=== PATIENT | female | born 1985 | race Caucasian/White ===

== ENCOUNTER 2019-05-27 02:17 | Emergency (ER) | payer SELFPAY ==
[~2019-05-27] VITALS: Ht 162.6 cm; Wt 59.9 kg
[2019-05-27] MEDS ORDERED: methylPREDNISolone SOD SUCC 125 MG/2 ML IVPush STA (02:31)
[2019-05-27] MEDS ORDERED: ALBUTEROL/IPRATROPIUM 2.5MG/0.5MG, 3 ML ONE (02:40)
[2019-05-27] MEDS ORDERED: SODIUM CHLORIDE FLUSH 10ML SYR IVF ONE (03:00)
[2019-05-27] MEDS ORDERED: ALBUTEROL/IPRATROPIUM 2.5MG/0.5MG, 3 ML NPPB SCH (03:00)
[2019-05-27] MEDS ORDERED: methylPREDNISolone SOD SUCC 125 MG/2 ML ONE (03:02)
[2019-05-27 03:13] LABS: BASOPHILS # (AUTO) 0.04 x10^3/uL (0-0.1); BASOPHILS % (AUTO) 0 % (0-1); EOSINOPHILS # (AUTO) 0.15 x10^3/uL (0-0.4); EOSINOPHILS % (AUTO) 1 % (1-7); LYMPHOCYTES # (AUTO) 3.17 x10^3/uL (1-3.4); LYMPHOCYTES % (AUTO) 31 % (22-44); MD NO; MEAN CORPUSCULAR HEMOGLOBIN 31.7 pg (27.0-34.8); MEAN CORPUSCULAR HGB CONC 33.8 g/dL (32.4-35.8); MEAN CORPUSCULAR VOLUME 93.8 fL (80-100); MEAN PLATELET VOLUME 8.4 fL (7.4-10.4); MONOCYTES # (AUTO) 0.92 x10^3/uL (0.2-0.8); MONOCYTES % (AUTO) 9 % (2-9); NEUTROPHILS # (AUTO) 6.14 x10^3/uL (1.8-6.8); NEUTROPHILS % (AUTO) 59 % (42-75); PLATELET COUNT 378 x10^3/uL (130-400); RED BLOOD COUNT 4.26 x10^6/uL (3.82-5.3); RED CELL DISTRIBUTION WIDTH 13.2 % (9.6-15.2)
--- NOTE | 2019-05-27 03:26 | NUR ---
Patient into room. Patient is alert oriented and answers questions clearly and concisely. Pateints voice sounds hoarse, and has an occasional cough. Patient tolerating room are (see vital signs flowsheet) RN to bedside to initiate peripheral venous access. Blood work drawn and sent via construction assistant. Respiratory therapist to bedside and patient reports having a syncopal episode after last breathing treatment so nebulized medication held. Patient continues to tolerate room air. Administered steroidal antiinflammatory per provider order. Patient asking to go to the bathroom, patient agreeable to providing clean catch urine sample. No order placed yet, may collect if ordered. Patient then attached to test rack operator. Rate and rhythm with normal limits. Awaiting for chest xray and laboratory results.
[2019-05-27 03:57] LABS: ALBUMIN 3.4 g/dL (3.4-5.0); ANION GAP 10 mmol/L (5-15); CALCIUM 7.9 mg/dL (8.5-10.1); CHLORIDE 112 mmol/L (98-107)
[2019-05-27 04:09] VITALS: BP 128/74
== END 2019-05-27 04:30 | disposition home or self-care (01) ==
LOC: ED 04:24
DX: J06.9 Acute upper respiratory infection, unspecified (principal); M06.9 Rheumatoid arthritis, unspecified
CPT/HCPCS: 36415; 71045; 80048; 82040; 85025; 96374; 99284; J2930